=== PATIENT | female | born 1975 | race Caucasian/White ===

== ENCOUNTER 2016-11-26 20:28 | Emergency (ER) | payer SELFPAY ==
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
[~2016-11-26 20:28] MED LIST: HYDROCODON-ACE1 EAC7 PO; PHENERGAN25 M1 PO; PROTONIX PO
== END 2016-11-26 21:40 | disposition home or self-care (01) ==
LOC: CED 20:28
DX: M54.5 Low back pain (principal); V89.2XXA Person injured in unspecified motor-vehicle accident, traffic, initial encounter; Y92.410 Unspecified street and highway as the place of occurrence of the external cause
CPT/HCPCS: 70450; 72100; 84703; 96372; 99284; J1885

== ENCOUNTER 2016-12-03 18:34 | Emergency (ER) | payer SELFPAY ==
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
== END 2016-12-03 19:42 | disposition home or self-care (01) ==
LOC: CFTX 18:34
DX: S16.1XXA Strain of muscle, fascia and tendon at neck level, initial encounter (principal); V89.2XXA Person injured in unspecified motor-vehicle accident, traffic, initial encounter; Y92.410 Unspecified street and highway as the place of occurrence of the external cause
CPT/HCPCS: 72040; 96372; 99283; J1885